=== PATIENT | male | born 1945 | race Caucasian/White ===

== ENCOUNTER 2017-05-02 09:44 | Inpatient (IN) | payer OTHER, BC ==
[~2017-05-02] VITALS: Ht 193 cm; Wt 112.6 kg
[~2017-05-02 09:44] MED LIST: PAM10 PO; ZONISAMIDE PO
[2017-05-02 09:46] VITALS: Ht 193 cm; Wt 112.6 kg
[2017-05-02 10:48] LABS: CALCIUM 9.4 mg/dL (8.5-10.1); CHLORIDE SERUM 100 mmol/L (98-107); GLUCOSE SERUM 97 mg/dL (74-106); PLATELET COUNT 178 x10^3mcL (130-400); RED CELL DISTRIBUTION WIDTH 13.7 % (11.5-14.5); SODIUM SERUM 136 mmol/L (136-145)
[2017-05-02 10:52] LABS: ALBUMIN 3.7 g/dL (3.4-5.0); ALKALINE PHOSPHATASE 97 U/L (46-116); ALT/SGPT 32 U/L (16-63); AST/SGOT 17 U/L (15-37); BILIRUBIN TOTAL 0.3 mg/dL (0.20-1.00); CHOLESTEROL 154 mg/dL (<200); TOTAL PROTEIN, SERUM 7.8 g/dL (6.4-8.2)
[2017-05-02 10:54] LABS: HDL CHOLESTEROL 32 mg/dL (40-60)
[2017-05-02 11:42] LABS: BAND NEUTROPHIL 0 % (0-10); BASOPHIL 0 % (0-2); MONOCYTE 25 % (0-7); SEGMENTED NEUTROPHILS 62 % (37-75)
[2017-05-02] MEDS ORDERED: SPIRIVA18 MC1 INH (12:41)
[2017-05-02] MEDS ORDERED: PROSCAR5 MG PO (12:42)
[2017-05-02] MEDS ORDERED: PHARMASSURE VI500 MG PO (12:42)
[2017-05-02] MEDS ORDERED: CALCIUM CITRATE1 TA1 PO (12:43)
[2017-05-02] MEDS ORDERED: FISH OIL WITH1 EACH PO (12:44)
[2017-05-02] MEDS ORDERED: FERRO-SEQUELS1 EACH PO (12:44)
[2017-05-02] MEDS ORDERED: ASPIR LOW81 MG PO (12:44)
[2017-05-02] MEDS ORDERED: GLUCOSAMINE CO1 EACH PO (12:45)
[2017-05-02] MEDS ORDERED: [UNRECOGNIZED DRUG - OTHER] PO (12:46)
[2017-05-02] MEDS ORDERED: CENTRUM SILVER1 EACH PO (12:46)
[2017-05-02] MEDS ORDERED: CIALIS5 M1 PO (12:46)
[2017-05-02] MEDS ORDERED: MULTIVITAMIN1 SGL PO (12:46)
[2017-05-02 13:26] LABS: UA SPECIFIC GRAVITY 1.015 (1.005-1.035); microscopic required? YES; urine erythrocyte NEGATIVE (NEGATIVE)
[2017-05-02 14:49] LABS: T3 TOTAL 1.05 ng/mL
[2017-05-02 14:55] LABS: AMPHETAMINE QUAL UR NONE DETECTED (NEG <=1000)
[2017-05-02 14:59] LABS: CHOLESTEROL/HDL RATIO 4.6; MAGNESIUM 2.1 mg/dL (1.8-2.4); PHOSPHOROUS 3.7 mg/dL (2.5-4.9)
[2017-05-02 15:10] LABS: FREE T4 1.21 ng/dL (0.76-1.46); FREE THYROXINE INDEX 3.1 ug/dL (1.4-4.5)
[2017-05-02 15:38] VITALS: BP 119/84
[2017-05-02 16:17] VITALS: BP 128/70
[2017-05-02 19:30] VITALS: BP 120/57
[2017-05-03 01:55] VITALS: BP 102/60
[2017-05-03 05:31] VITALS: BP 103/62
[2017-05-03 06:23] VITALS: BP 102/60
[2017-05-03 06:42] LABS: BASOPHIL % 0.1 % (0-2); PLATELET COUNT 179 x10^3mcL (130-400); RED CELL DISTRIBUTION WIDTH 13.9 % (11.5-14.5)
[2017-05-03 07:00] LABS: CALCIUM 8.7 mg/dL (8.5-10.1); CARBON DIOXIDE 29.5 mmol/L (21-32); CHLORIDE SERUM 102 mmol/L (98-107); CREATININE SERUM 1.1 mg/dL (0.7-1.3); GLUCOSE SERUM 132 mg/dL (74-106); MAGNESIUM 2.1 mg/dL (1.8-2.4); POTASSIUM SERUM 4.5 mmol/L (3.5-5.1); SODIUM SERUM 136 mmol/L (136-145)
[2017-05-03 09:12] VITALS: BP 111/49
[2017-05-03 16:40] VITALS: BP 126/51
[2017-05-03 20:30] VITALS: BP 114/53
[2017-05-04 06:07] VITALS: BP 110/56
[2017-05-04 06:20] LABS: CALCIUM 8.4 mg/dL (8.5-10.1); CARBON DIOXIDE 26.4 mmol/L (21-32); CHLORIDE SERUM 107 mmol/L (98-107); CREATININE SERUM 1.1 mg/dL (0.7-1.3); GLUCOSE SERUM 130 mg/dL (74-106); MAGNESIUM 1.9 mg/dL (1.8-2.4); PHOSPHOROUS 3.7 mg/dL (2.5-4.9); POTASSIUM SERUM 4.6 mmol/L (3.5-5.1); SODIUM SERUM 143 mmol/L (136-145)
[2017-05-04 06:48] LABS: PLATELET COUNT 172 x10^3mcL (130-400); RED CELL DISTRIBUTION WIDTH 13.8 % (11.5-14.5)
[2017-05-04 06:59] LABS: BASOPHIL % 0 % (0-2)
[2017-05-04 09:32] VITALS: BP 112/48
[2017-05-04 13:32] VITALS: BP 99/52
[2017-05-04 17:44] VITALS: BP 114/54
[2017-05-04 20:22] VITALS: BP 143/59
[2017-05-05 05:33] VITALS: BP 152/68
[2017-05-05 06:09] LABS: PLATELET COUNT 177 x10^3mcL (130-400); RED CELL DISTRIBUTION WIDTH 14.2 % (11.5-14.5)
[2017-05-05 06:13] LABS: CALCIUM 8.4 mg/dL (8.5-10.1); CHLORIDE SERUM 103 mmol/L (98-107); CREATININE SERUM 0.9 mg/dL (0.7-1.3); GLUCOSE SERUM 106 mg/dL (74-106); MAGNESIUM 2.1 mg/dL (1.8-2.4); PHOSPHOROUS 3.6 mg/dL (2.5-4.9); POTASSIUM SERUM 4.6 mmol/L (3.5-5.1); SODIUM SERUM 139 mmol/L (136-145)
[2017-05-05 06:27] LABS: BASOPHIL % 0 % (0-2)
[2017-05-05 08:30] VITALS: BP 142/82
[2017-05-05 12:46] VITALS: BP 115/60
[2017-05-05 16:30] VITALS: BP 116/56
[2017-05-05 21:36] VITALS: BP 122/62
[2017-05-06 05:30] VITALS: BP 127/82
[2017-05-06 07:36] LABS: CALCIUM 8.5 mg/dL (8.5-10.1); CARBON DIOXIDE 33.4 mmol/L (21-32); CHLORIDE SERUM 102 mmol/L (98-107); CREATININE SERUM 0.9 mg/dL (0.7-1.3); GLUCOSE SERUM 108 mg/dL (74-106); MAGNESIUM 2.2 mg/dL (1.8-2.4); POTASSIUM SERUM 4.8 mmol/L (3.5-5.1); SODIUM SERUM 141 mmol/L (136-145)
[2017-05-06 07:38] LABS: PLATELET COUNT 167 x10^3mcL (130-400); RED CELL DISTRIBUTION WIDTH 14.3 % (11.5-14.5)
[2017-05-06 07:40] LABS: BASOPHIL % 0 % (0-2)
[2017-05-06 09:51] VITALS: BP 142/73
[2017-05-06 14:20] VITALS: BP 137/65
[2017-05-06 17:54] VITALS: BP 132/55
[2017-05-06 21:46] VITALS: BP 125/54
[2017-05-07 05:28] VITALS: BP 134/75
[2017-05-07 05:40] LABS: PLATELET COUNT 181 x10^3mcL (130-400); RED CELL DISTRIBUTION WIDTH 14.5 % (11.5-14.5)
[2017-05-07 05:43] LABS: BASOPHIL % 0 % (0-2)
[2017-05-07 05:51] LABS: CALCIUM 8.8 mg/dL (8.5-10.1); CARBON DIOXIDE 36.6 mmol/L (21-32); CHLORIDE SERUM 104 mmol/L (98-107); CREATININE SERUM 0.9 mg/dL (0.7-1.3); GLUCOSE SERUM 119 mg/dL (74-106); MAGNESIUM 2.1 mg/dL (1.8-2.4); PHOSPHOROUS 3.9 mg/dL (2.5-4.9); SODIUM SERUM 143 mmol/L (136-145)
[2017-05-07 05:57] LABS: POTASSIUM SERUM 5.7 mmol/L (3.5-5.1)
[2017-05-07 08:48] VITALS: BP 153/80
[2017-05-07 12:52] VITALS: BP 137/71
[2017-05-07] MEDS ORDERED: LEVAQUIN750 MG PO (13:25)
[2017-05-07] MEDS ORDERED: CLEOCIN HCL300 MG PO (13:25)
[2017-05-07] MEDS ORDERED: LAC PO (13:26)
[2017-05-07 14:55] LABS: CALCIUM 8.5 mg/dL (8.5-10.1); CHLORIDE SERUM 100 mmol/L (98-107); CREATININE SERUM 0.9 mg/dL (0.7-1.3); GLUCOSE SERUM 143 mg/dL (74-106); POTASSIUM SERUM 3.7 mmol/L (3.5-5.1); SODIUM SERUM 138 mmol/L (136-145)
[2017-05-07 16:57] VITALS: BP 144/68
[2017-05-07 20:52] VITALS: BP 149/81
[2017-05-08 06:16] VITALS: BP 123/66
[2017-05-08 07:11] LABS: BASOPHIL % 0.1 % (0-2); PLATELET COUNT 180 x10^3mcL (130-400); RED CELL DISTRIBUTION WIDTH 13.9 % (11.5-14.5)
[2017-05-08 07:27] LABS: CALCIUM 8.5 mg/dL (8.5-10.1); CARBON DIOXIDE 33.8 mmol/L (21-32); CHLORIDE SERUM 99 mmol/L (98-107); CREATININE SERUM 0.8 mg/dL (0.7-1.3); GLUCOSE SERUM 111 mg/dL (74-106); MAGNESIUM 2.2 mg/dL (1.8-2.4); PHOSPHOROUS 4.4 mg/dL (2.5-4.9); POTASSIUM SERUM 4.6 mmol/L (3.5-5.1); SODIUM SERUM 138 mmol/L (136-145)
[2017-05-08 08:54] VITALS: BP 136/83
[2017-05-08 09:48] VITALS: BP 136/83
== END 2017-05-08 11:00 | disposition home or self-care (01) | DRG 177 ==
LOC: ED 09:44 → DU 12:23
PROVIDERS: Emergency Medicine; Family Medicine Sports Medicine; Student in an Organized Health Care Education/Training Program
DX: J69.0 Pneumonitis due to inhalation of food and vomit (principal); J96.01 Acute respiratory failure with hypoxia; J44.1 Chronic obstructive pulmonary disease with (acute) exacerbation; N39.0 Urinary tract infection, site not specified; I48.91 Unspecified atrial fibrillation; E87.5 Hyperkalemia; G50.0 Trigeminal neuralgia; E78.5 Hyperlipidemia, unspecified; F17.210 Nicotine dependence, cigarettes, uncomplicated; E66.9 Obesity, unspecified; Z68.32 Body mass index [BMI] 32.0-32.9, adult; Z85.840 Personal history of malignant neoplasm of eye
CPT/HCPCS: 36600; 83880; 84439; 87804; 94150; 99406; J1644; J1956; J2920; J2930; J3490; J7030; J7620; J7626; Q0092

== ENCOUNTER 2018-07-18 17:40 | Inpatient (IN) | payer OTHER, BC ==
[~2018-07-18] VITALS: Ht 188 cm; Wt 102.5 kg
[~2018-07-18 17:40] MED LIST changes: +ASPIR LOW81 MG PO; +CALCIUM CITRATE1 TA1 PO; +CENTRUM SILVER1 EACH PO; +CIALIS5 M1 PO; +CLEOCIN HCL300 MG PO; +FERRO-SEQUELS1 EACH PO; +FISH OIL WITH1 EACH PO; +GLUCOSAMINE CO1 EACH PO; +LAC PO; +LEVAQUIN750 MG PO; +MULTIVITAMIN1 SGL PO; +PHARMASSURE VI500 MG PO; +PROSCAR5 MG PO; +SPIRIVA18 MC1 INH; +[UNRECOGNIZED DRUG - OTHER] PO
[2018-07-18 17:43] VITALS: Ht 188 cm; Wt 102.5 kg
[2018-07-18 18:28] LABS: PLATELET COUNT 158 x10^3mcL (130-400)
[2018-07-18 18:30] LABS: RED CELL DISTRIBUTION WIDTH 14.6 % (11.5-14.5)
[2018-07-18 18:35] LABS: CALCIUM 9.1 mg/dL (8.5-10.1); CARBON DIOXIDE 26.9 mmol/L (21-32); CHLORIDE SERUM 106 mmol/L (98-107); CREATININE SERUM 1.1 mg/dL (0.7-1.3); GLUCOSE SERUM 93 mg/dL (74-106); SODIUM SERUM 140 mmol/L (136-145)
[2018-07-18 18:40] LABS: ALKALINE PHOSPHATASE 92 U/L (46-116); ALT/SGPT 30 U/L (16-63); AST/SGOT 17 U/L (15-37); BILIRUBIN TOTAL 0.71 mg/dL (0.20-1.00); TOTAL PROTEIN, SERUM 7.1 g/dL (6.4-8.2)
[2018-07-18 18:46] LABS: ALBUMIN 3.3 g/dL (3.4-5.0)
[2018-07-18 20:26] LABS: PHOSPHOROUS 3.9 mg/dL (2.5-4.9)
[2018-07-18 20:27] LABS: CHOLESTEROL/HDL RATIO 3.7
[2018-07-18 22:05] VITALS: BP 131/93
[2018-07-18 22:52] VITALS: BP 131/93
[2018-07-19 05:04] VITALS: BP 123/76
[2018-07-19 06:10] LABS: BASOPHIL % 0.6 % (0-2); PLATELET COUNT 151 x10^3mcL (130-400)
[2018-07-19 06:32] LABS: RED CELL DISTRIBUTION WIDTH 15.8 % (11.5-14.5)
[2018-07-19 07:15] LABS: CARBON DIOXIDE 30.3 mmol/L (21-32); CHLORIDE SERUM 106 mmol/L (98-107); GLUCOSE SERUM 89 mg/dL (74-106); POTASSIUM SERUM 3.7 mmol/L (3.5-5.1); SODIUM SERUM 142 mmol/L (136-145)
[2018-07-19 07:16] LABS: CALCIUM 8.6 mg/dL (8.5-10.1)
[2018-07-19 09:25] VITALS: BP 127/61
[2018-07-19 12:36] VITALS: BP 116/78
[2018-07-19 17:00] VITALS: BP 125/84
[2018-07-19 18:10] LABS: UA SPECIFIC GRAVITY 1.015 (1.005-1.035); microscopic required? YES; urine erythrocyte NEGATIVE (NEGATIVE)
[2018-07-19 21:14] VITALS: BP 125/72
[2018-07-20] VITALS (7 sets, daily range): BP systolic 101–132; BP diastolic 64–83
[2018-07-20 06:33] LABS: BASOPHIL % 0.6 % (0-2); PLATELET COUNT 147 x10^3mcL (130-400)
[2018-07-20 06:35] LABS: CALCIUM 8.7 mg/dL (8.5-10.1); CARBON DIOXIDE 32.3 mmol/L (21-32); CHLORIDE SERUM 105 mmol/L (98-107); GLUCOSE SERUM 92 mg/dL (74-106); POTASSIUM SERUM 3.9 mmol/L (3.5-5.1); RED CELL DISTRIBUTION WIDTH 15.7 % (11.5-14.5); SODIUM SERUM 141 mmol/L (136-145)
[2018-07-21 04:35] VITALS: BP 117/76
[2018-07-21 06:44] LABS: CALCIUM 9.3 mg/dL (8.5-10.1); CARBON DIOXIDE 27.9 mmol/L (21-32); CHLORIDE SERUM 106 mmol/L (98-107); CREATININE SERUM 0.9 mg/dL (0.7-1.3); GLUCOSE SERUM 88 mg/dL (74-106); POTASSIUM SERUM 3.8 mmol/L (3.5-5.1); SODIUM SERUM 142 mmol/L (136-145)
[2018-07-21 07:36] LABS: BASOPHIL % 0.7 % (0-2); PLATELET COUNT 155 x10^3mcL (130-400)
[2018-07-21 07:56] LABS: RED CELL DISTRIBUTION WIDTH 14.7 % (11.5-14.5)
[2018-07-21 08:21] VITALS: BP 112/60
[2018-07-21] MEDS ORDERED: ZITHROMAX TRI-500 MG PO (10:16)
[2018-07-21] MEDS ORDERED: MEDDP PO (10:17)
[2018-07-21] MEDS ORDERED: XARELTO10 M1 PO ×2 (10:19→10:21)
[2018-07-21] MEDS ORDERED: CAR60 PO (10:33)
[2018-07-21 11:36] VITALS: BP 112/60
== END 2018-07-21 12:12 | disposition home or self-care (01) | DRG 175 ==
LOC: ED 17:40 → DU 19:41
PROVIDERS: Emergency Medicine; Family Medicine; ADMIT Internal Medicine
DX: I26.99 Other pulmonary embolism without acute cor pulmonale (principal); N17.0 Acute kidney failure with tubular necrosis; E44.1 Mild protein-calorie malnutrition; I48.91 Unspecified atrial fibrillation; G50.0 Trigeminal neuralgia; J44.9 Chronic obstructive pulmonary disease, unspecified; N40.0 Benign prostatic hyperplasia without lower urinary tract symptoms; Z68.29 Body mass index [BMI] 29.0-29.9, adult; Z85.840 Personal history of malignant neoplasm of eye
CPT/HCPCS: 83880; 85378; 94150; J1940; J7030; J7620; Q0092